=== PATIENT | female | born 1990 | race Caucasian/White ===

== ENCOUNTER 2017-07-19 16:30 | Emergency (ER) | payer MEDICAID ==
[~2017-07-19] VITALS: Ht 154.9 cm; Wt 121.6 kg
[~2017-07-19 16:30] MED LIST: ACETAMINOPHEN-1 EAC1; ACETAMINOPHEN-1 EAC1 PO; AMITRIPTYLINE H25 M4; ANTIBIOTIC UNKNOWN PO; AUGMENTIN 875875 M1; AUGMENTIN 875875 MG PO; BACLOFEN 10MG T10 MG; BACTRIM DS TAB1 EACH PO; BENTYL 10 MG CA10 M1 PO; BENTYL 20 MG TA20 M1 PO; CARISOPRODOL 3350 M1; CELEXA 20 MG TA20 MG; CEPHALEXIN 500500 M3 PO; CLONAZEPAM 1 MG1 M1 PO; COLESTID1 GM PO; ERYTHROMYCIN250 MG; FIORICET 50-301 EACH PO; FLAGYL500 MG PO; FLEXERIL PO; FLONASE 0.05%50 MCG NASAL; FLUZONE 2045 MCG/011; HYDROCODON-ACE1 EAC7; HYDROCODON-ACE1 EAC7 PO; IBUPROFEN 200200 M1; IBUPROFEN 600600 M1 PO; IBUPROFEN 800800 M1 PO; IBUPROFEN 800800 MG PO; IMITREX 50 MG T50 MG; IMITREX 50 MG T50 MG PO; KEFLEX500 MG PO; LIDOCAINE VISC100 M1 SWISH&SPIT; LIORESAL 10 MG10 MG PO; LO LOESTRIN FE1 EACH; LOESTRIN1 EAC1 PO; MACROBID 100 M100 M2 PO; NAPROSYN500 MG PO; NEURONTIN 300300 M1 PO; NORCO 5-325 TA1 EAC1 PO; NORCO 5-325 TA1 EACH PO; NORFLEX100 MG; NORFLEX100 MG PO; ONDANSETRON HCL4 M2 PO; PENICILLIN V P500 MG PO; PERCOCET 5-3251 EACH PO; PHENERGAN 25 MG25 M1 PO; PNEUMOVAX25 MCG/0.5; PRENATAL; PREVACID; PROPRANOLOL 1010 MG; PROTONIX40 M1 PO; PROTONIX40 M4 PO; SENNA; SEROQUEL 25 MG25 M1 PO; TIZANIDINE HCL4 M1 PO; TORADOL 10 MG T10 MG PO; TRAMADOL 50 MG50 MG PO; TRAZODONE HCL50 MG; ULTRAM ER100 MG; VIIBRYD10 MG; VIIBRYD40 MG PO; VISTARIL 25 MG25 M1 PO; ZANTAC 150MG T150 MG PO; ZOFRAN 4 MG ORAL4 M1 DIS; ZOFRAN4 MG PO; ZYRTEC10 M5 PO
[2017-07-19] MEDS ORDERED: BUSPIRONE HCL10 MG PO (16:52)
[2017-07-19] MEDS ORDERED: ERYTHROMYCIN500 MG PO (16:53)
[2017-07-19] MEDS ORDERED: ACETAMINOPHEN-1 EAC1 PO (17:19)
[2017-07-19] MEDS ORDERED: AMOXICILLIN 50500 MG PO (17:19)
[2017-07-19] MEDS ORDERED: IBUPROFEN 800800 M1 PO (17:19)
[2017-07-19 17:37] VITALS: BP 129/91
== END 2017-07-19 17:38 | disposition home or self-care (01) ==
LOC: M.ERS 16:30
DX: S02.5XXA Fracture of tooth (traumatic), initial encounter for closed fracture (principal); G43.909 Migraine, unspecified, not intractable, without status migrainosus; F32.9 Major depressive disorder, single episode, unspecified; F41.9 Anxiety disorder, unspecified; F43.10 Post-traumatic stress disorder, unspecified; G89.29 Other chronic pain; Z87.898 Personal history of other specified conditions; Z91.040 Latex allergy status; Z88.8 Allergy status to other drugs, medicaments and biological substances; X58.XXXA Exposure to other specified factors, initial encounter; Y93.89 Activity, other specified; Y92.89 Other specified places as the place of occurrence of the external cause; Y99.8 Other external cause status

== ENCOUNTER 2017-11-07 08:16 | Emergency (ER) | payer MEDICAID ==
[~2017-11-07] VITALS: Ht 154.9 cm; Wt 125.7 kg
[~2017-11-07 08:16] MED LIST changes: +AMOXICILLIN 50500 MG PO; +BUSPIRONE HCL10 MG PO; +ERYTHROMYCIN500 MG PO
[2017-11-07 08:18] VITALS: BP 134/87
[2017-11-07] MEDS ORDERED: SINGULAIR 10 MG10 M1 PO (08:30)
[2017-11-07] MEDS ORDERED: LIORESAL 10 MG10 MG PO (08:30)
[2017-11-07] MEDS ORDERED: HYDROCODON-ACE1 EAC7 PO (08:31)
[2017-11-07] MEDS ORDERED: FLEXERIL PO (08:31)
== END 2017-11-07 08:41 | disposition home or self-care (01) ==
LOC: M.ERS 08:16
DX: S39.012A Strain of muscle, fascia and tendon of lower back, initial encounter (principal); S61.210A Laceration without foreign body of right index finger without damage to nail, initial encounter; M79.7 Fibromyalgia; G43.909 Migraine, unspecified, not intractable, without status migrainosus; F32.9 Major depressive disorder, single episode, unspecified; F41.9 Anxiety disorder, unspecified; G89.29 Other chronic pain; M54.2 Cervicalgia; Z91.040 Latex allergy status; Z88.8 Allergy status to other drugs, medicaments and biological substances; W10.8XXA Fall (on) (from) other stairs and steps, initial encounter; Y93.89 Activity, other specified; Y92.89 Other specified places as the place of occurrence of the external cause; Y99.8 Other external cause status

== ENCOUNTER 2017-12-28 08:15 | Emergency (ER) | payer MEDICAID ==
[~2017-12-28] VITALS: Ht 154.9 cm; Wt 127.0 kg
[~2017-12-28 08:15] MED LIST changes: +SINGULAIR 10 MG10 M1 PO
[2017-12-28] MEDS ORDERED: ULTRAM 50MG TAB50 MG PO (08:40)
[2017-12-28] MEDS ORDERED: FLEXERIL PO (08:40)
[2017-12-28 09:00] VITALS: BP 153/97
== END 2017-12-28 09:00 | disposition home or self-care (01) ==
LOC: M.ERS 08:15
DX: M54.5 Low back pain (principal); M79.7 Fibromyalgia; G43.909 Migraine, unspecified, not intractable, without status migrainosus; F32.9 Major depressive disorder, single episode, unspecified; F41.9 Anxiety disorder, unspecified; F43.10 Post-traumatic stress disorder, unspecified; G89.29 Other chronic pain; M54.2 Cervicalgia; Z91.040 Latex allergy status; Z88.8 Allergy status to other drugs, medicaments and biological substances

== ENCOUNTER 2018-01-31 15:08 | Emergency (ER) | payer MEDICAID ==
[~2018-01-31] VITALS: Ht 154.9 cm; Wt 128.8 kg
[~2018-01-31 15:08] MED LIST changes: +ULTRAM 50MG TAB50 MG PO
[2018-01-31 15:15] VITALS: BP 154/82
[2018-01-31] MEDS ORDERED: IBUPROFEN 800800 M1 PO (15:36)
== END 2018-01-31 15:57 | disposition home or self-care (01) ==
LOC: M.ERS 15:08
DX: S62.524A Nondisplaced fracture of distal phalanx of right thumb, initial encounter for closed fracture (principal); M79.7 Fibromyalgia; G43.909 Migraine, unspecified, not intractable, without status migrainosus; F32.9 Major depressive disorder, single episode, unspecified; F41.9 Anxiety disorder, unspecified; G89.29 Other chronic pain; M54.2 Cervicalgia; Z91.040 Latex allergy status; Z88.8 Allergy status to other drugs, medicaments and biological substances; X58.XXXA Exposure to other specified factors, initial encounter; Y93.89 Activity, other specified; Y92.89 Other specified places as the place of occurrence of the external cause; Y99.8 Other external cause status

== ENCOUNTER 2018-03-13 13:44 | Emergency (ER) | payer MEDICAID ==
[~2018-03-13] VITALS: Ht 154.9 cm; Wt 132.5 kg
[2018-03-13] MEDS ORDERED: TRAMADOL 50 MG50 MG PO (13:55)
[2018-03-13] MEDS ORDERED: LIORESAL 10 MG10 MG PO (13:56)
[2018-03-13] MEDS ORDERED: PREDNISONE 10 M10 M1 PO (14:05)
[2018-03-13 14:11] VITALS: BP 134/83
== END 2018-03-13 14:12 | disposition home or self-care (01) ==
LOC: M.ERS 13:44
DX: K08.89 Other specified disorders of teeth and supporting structures (principal); M25.512 Pain in left shoulder; M79.7 Fibromyalgia; G43.909 Migraine, unspecified, not intractable, without status migrainosus; F32.9 Major depressive disorder, single episode, unspecified; F41.9 Anxiety disorder, unspecified; G89.29 Other chronic pain; M54.2 Cervicalgia; Z88.8 Allergy status to other drugs, medicaments and biological substances; Z91.040 Latex allergy status

== ENCOUNTER 2018-08-06 14:00 | Emergency (ER) | payer MEDICAID ==
[~2018-08-06] VITALS: Ht 154.9 cm; Wt 128.8 kg
[~2018-08-06 14:00] MED LIST changes: +PREDNISONE 10 M10 M1 PO
[2018-08-06] MEDS ORDERED: IMITREX100 MG PO (14:24)
[2018-08-06] MEDS ORDERED: CELEBREX 200 M200 M1 PO (14:24)
[2018-08-06] MEDS ORDERED: LYRICA 50 MG50 MG PO (14:25)
[2018-08-06] MEDS ORDERED: PHENERGAN 25 MG25 M1 PO (14:25)
[2018-08-06] MEDS ORDERED: AZELASTINE137 MCG/0. NASAL (14:26)
[2018-08-06] MEDS ORDERED: PAZEO2.5 ML OTIC (14:26)
[2018-08-06] MEDS ORDERED: MEDROL DOSPAK21 TA1 PO (15:06)
[2018-08-06] MEDS ORDERED: ROBAXIN 750 MG750 M1 PO (15:06)
[2018-08-06 15:56] VITALS: BP 140/82
== END 2018-08-06 15:56 | disposition home or self-care (01) ==
LOC: M.ERS 14:00
DX: S39.012A Strain of muscle, fascia and tendon of lower back, initial encounter (principal); M62.830 Muscle spasm of back; F32.9 Major depressive disorder, single episode, unspecified; F41.9 Anxiety disorder, unspecified; M79.7 Fibromyalgia; G43.909 Migraine, unspecified, not intractable, without status migrainosus; K58.9 Irritable bowel syndrome, unspecified; K31.84 Gastroparesis; Z91.040 Latex allergy status; Z88.8 Allergy status to other drugs, medicaments and biological substances; W01.0XXA Fall on same level from slipping, tripping and stumbling without subsequent striking against object, initial encounter; Y93.89 Activity, other specified; Y92.89 Other specified places as the place of occurrence of the external cause; Y99.8 Other external cause status

== ENCOUNTER 2019-04-09 10:33 | Emergency (ER) | payer MEDICAID ==
[~2019-04-09] VITALS: Ht 154.9 cm; Wt 95.3 kg
[~2019-04-09 10:33] MED LIST changes: +AZELASTINE137 MCG/0. NASAL; +CELEBREX 200 M200 M1 PO; +IMITREX100 MG PO; +LYRICA 50 MG50 MG PO; +MEDROL DOSPAK21 TA1 PO; +PAZEO2.5 ML OTIC; +ROBAXIN 750 MG750 M1 PO
[2019-04-09 10:47] VITALS: BP 148/72
[2019-04-09] MEDS ORDERED: AMOXICILLIN 50500 MG PO (11:07)
[2019-04-09] MEDS ORDERED: TESSALON PERLE100 MG PO (11:08)
[2019-04-09] MEDS ORDERED: PROMETHAZINE V120 ML PO (11:08)
== END 2019-04-09 11:18 | disposition home or self-care (01) ==
LOC: M.ERS 10:33
DX: H66.92 Otitis media, unspecified, left ear (principal); M79.7 Fibromyalgia; G43.909 Migraine, unspecified, not intractable, without status migrainosus; K58.9 Irritable bowel syndrome, unspecified; F32.9 Major depressive disorder, single episode, unspecified; F41.9 Anxiety disorder, unspecified; M54.2 Cervicalgia; G89.29 Other chronic pain; Z88.8 Allergy status to other drugs, medicaments and biological substances; Z91.040 Latex allergy status

== ENCOUNTER 2019-06-05 14:20 | Emergency (ER) | payer OTHER ==
[~2019-06-05] VITALS: Ht 154.9 cm; Wt 90.7 kg
[~2019-06-05 14:20] MED LIST changes: +PROMETHAZINE V120 ML PO; +TESSALON PERLE100 MG PO
[2019-06-05] MEDS ORDERED: PREDNISONE 10 M10 MG PO ×2 (15:05→15:09)
[2019-06-05] MEDS ORDERED: LIQUITUSS200 MG/5 M PO ×2 (15:05→15:09)
[2019-06-05 15:09] VITALS: BP 145/71
== END 2019-06-05 15:09 | disposition home or self-care (01) ==
LOC: M.ERS 14:20
DX: B34.9 Viral infection, unspecified (principal); M79.7 Fibromyalgia; K31.84 Gastroparesis; G43.909 Migraine, unspecified, not intractable, without status migrainosus; F32.9 Major depressive disorder, single episode, unspecified; F41.9 Anxiety disorder, unspecified; K58.9 Irritable bowel syndrome, unspecified; G89.29 Other chronic pain; Z88.8 Allergy status to other drugs, medicaments and biological substances; Z91.040 Latex allergy status

== ENCOUNTER 2019-06-17 15:45 | Emergency (ER) | payer OTHER ==
[~2019-06-17] VITALS: Ht 154.9 cm; Wt 113.4 kg
[~2019-06-17 15:45] MED LIST changes: +LIQUITUSS200 MG/5 M PO; +PREDNISONE 10 M10 MG PO
[2019-06-17] MEDS ORDERED: TUSSIN CF MULT118 ML PO (16:49)
[2019-06-17] MEDS ORDERED: TESSALON PERLE100 MG PO (16:49)
[2019-06-17 17:10] VITALS: BP 128/68
== END 2019-06-17 17:11 | disposition home or self-care (01) ==
LOC: M.ERS 15:45
DX: G43.909 Migraine, unspecified, not intractable, without status migrainosus (principal); J06.9 Acute upper respiratory infection, unspecified; G89.29 Other chronic pain; M54.2 Cervicalgia; M79.7 Fibromyalgia; K58.9 Irritable bowel syndrome, unspecified; F41.9 Anxiety disorder, unspecified; F32.9 Major depressive disorder, single episode, unspecified; Z91.040 Latex allergy status; Z88.8 Allergy status to other drugs, medicaments and biological substances